=== PATIENT | female | born 1985 | race Caucasian/White ===

== ENCOUNTER 2017-02-11 14:49 | Emergency (ER) | payer SELFPAY ==
--- NOTE | 2017-02-11 15:03 | PDOC ---
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 She states the patient agreed to HIV testing and presents for screening for herself. She admits to having a tetanus within the past 10 years. She denies chest pain, shortness of breath, headache and dizziness. She denies fever, chills, nausea, vomit, diarrhea and constipation. Allergies: NKDA The patient requests to return to work at this time and to receive a call with results when ready. <Precious Salmon - Last Filed: 02/11/17 15:32> - General Chief Complaint: Non EmpBld/Body Flud Exposure Stated Complaint: NEEDLE STICK LEFT THUMB Time Seen by Provider: 02/11/17 14:52 Past History <Tracie Liang - Last Filed: 02/11/17 14:52> <Precious Salmon - Last Filed: 02/11/17 15:32> - Past Medical History Allergies/Adverse Reactions: Allergies No Known Allergies Allergy (Verified 02/11/17 15:12) Home Medications: Ambulatory Orders NK [No Known Home Medication] 02/11/17 Review of Systems - Review of Systems Able to Perform ROS?: Yes Comments:: 02/11/17 15:08 GENERAL/CONSTITUTIONAL: No fever or chills. No weakness. HEAD, EYES, EARS, NOSE AND THROAT: No change in vision. No ear pain or discharge. No sore throat. CARDIOVASCULAR: No chest pain or shortness of breath. RESPIRATORY: No cough, wheezing, or hemoptysis. GASTROINTESTINAL: No nausea, vomiting, diarrhea or constipation. GENITOURINARY: No dysuria, frequency, or change in urination. MUSCULOSKELETAL: No joint or muscle swelling or pain. No neck or back pain. SKIN: (+) needle stick at base of left thumb. No rash NEUROLOGIC: No headache, vertigo, loss of consciousness, or change in strength/ sensation. ENDOCRINE: No increased thirst. No abnormal weight change. HEMATOLOGIC/LYMPHATIC: No anemia, easy bleeding, or history of blood clots. ALLERGIC/IMMUNOLOGIC: No hives or skin allergy. <Precious Salmon - Last Filed: 02/11/17 15:32> *Physical Exam - Physical Exam Comments: GENERAL: Awake, alert, and fully oriented, in no acute distress HEAD: No signs of trauma EXTREMITIES: Normal range of motion, no edema. No clubbing or cyanosis. No cords, erythema, or tenderness NEUROLOGICAL: Cranial nerves II through XII grossly intact. Normal speech, normal gait SKIN: Warm, Dry, normal turgor, no rashes. Small puncture addis to the L thumb at the base. No active bleeding. <Tracie Liang - Last Filed: 02/11/17 14:52> *DC/Admit/Observation/Transfer - Discharge Dispostion Admit: No <Tracie Liang - Last Filed: 02/11/17 14:52> - Attestations Scribe Attestion: 02/11/17 15:08 Documentation prepared by Precious Salmon, acting as health care / medical job titles for Tracie Liang MD, <Precious Salmon - Last Filed: 02/11/17 15:32> Diagnosis at time of Disposition: Needlestick injury accident Qualifiers: Encounter type: initial encounter Qualified Code(s): W27.3XXA - Contact with needle (sewing), initial encounter - Discharge Dispostion Disposition: HOME Condition at time of disposition: Stable - Referrals - Patient Instructions Printed Discharge Instructions: DI for Accidental Exposure to Body Fluids - Post Discharge Activity Work/School Note: Back to Work
[2017-02-11 15:32] VITALS: BP 127/88; PULSE 77; TEMP 98.5; BMI 25.0
[2017-02-11 16:10] LABS: BASOPHIL 0.9 % (0-2.0); EOSINOPHIL 0.6 % (0-4.5); MCH 32.2 pg (25.7-33.7); MCHC 34.7 g/dl (32.0-36.0); MEAN CELL VOLUME 92.9 fl (80-96); MEAN PLT VOLUME 9.2 fl (7.5-11.1); NEUTROPHILS 62.8 % (42.8-82.8); PLATELET COUNT 208 K/MM3 (134-434); RDW 11.5 % (11.6-15.6); WHITE BLOOD COUNT 5.9 K/mm3 (4.0-10.8)
[2017-02-11 16:21] LABS: ALBUMIN 4.8 g/dl (3.5-5.0); ALK PHOS 34 U/L (32-92); ANION GAP 7 (8-16); BILIRUBIN,TOTAL 0.5 mg/dl (0.2-1.0); CALCIUM 9.3 mg/dl (8.4-10.2); CHOLESTEROL 237 mg/dl; CO2 24 mmol/L (22-28); CREATININE 0.7 mg/dl (0.6-1.3); GLUCOSE,RANDOM 105 mg/dl (74-106); LDH 127 U/L (91-180); SGOT/AST 21 U/L (10-42); SGPT/ALT 19 U/L (10-40); TOT PROT 7.5 g/dl (6.4-8.3); URIC ACID 4.8 mg/dl (2.6-7.2)
[2017-02-11 18:23] LABS: HIV 1 & 2 AB NEGATIVE; HIV 1 AGp24 NEGATIVE
[2017-02-12 06:06] LABS: HEP B SURFACE AB Reactive (.)
== END 2017-02-11 15:37 | disposition home or self-care (01) ==
LOC: FER 14:49
DX: Z77.21 Contact with and (suspected) exposure to potentially hazardous body fluids (principal); W46.1XXA Contact with contaminated hypodermic needle, initial encounter; Y93.89 Activity, other specified; Y92.234 Operating room of hospital as the place of occurrence of the external cause; Y99.0 Civilian activity done for income or pay
CPT/HCPCS: 36415; 80053; 82465; 82977; 83615; 84100; 84478; 84550; 85025; 86704; 86706; 86803; 87340; 87389; 99283-25